=== PATIENT | female | born 2000 | race Caucasian/White ===

== ENCOUNTER 2022-10-09 21:57 | Emergency (ER) | payer MEDICAID ==
[2022-10-09 23:01] VITALS: BP 121/95; PULSE 90
== END 2022-10-10 00:11 | disposition home or self-care (01) ==
LOC: JD.ED 21:57
DX: K08.89 Other specified disorders of teeth and supporting structures (principal); Z88.0 Allergy status to penicillin
CPT/HCPCS: 99282